=== PATIENT | male | born 1985 | race Caucasian/White ===

== ENCOUNTER 2017-10-18 20:34 | Emergency (ER) | payer MEDICAID, SELFPAY ==
[2017-10-18 20:35] VITALS: BP 129/73; PULSE 91; RESP 15; TEMP 36.8; O2SAT 98; BMI 21.7
--- NOTE | 2017-10-18 20:48 | RAD_ITS ---
STUDY: X-RAY CHEST REASON FOR EXAM: Male, 32 years old. Posterior chest pain with cough. TECHNIQUE: PA and lateral views of the chest. COMPARISON: None. FINDINGS: No focal consolidation is visualized. Normal size heart. Normal mediastinum and lis. Normal visualized pulmonary arteries. Normal visualized aortic arch and descending thoracic aorta. Normal visualized thoracic spine. Normal visualized ribs, clavicles, and shoulders. There is no demonstrated abnormality of the visualized soft tissue structures of the upper abdomen. RAD/Chest PA and Lateral IMPRESSION: No acute cardiopulmonary process. Electronically Signed: Ashley Cope MD at 21:37 EST Tel , Service support ,
--- NOTE | 2017-10-18 21:45 | ED.DCSUM_ITS ---
- ER Visit Summary Date of Service: 10/18/17 Chief Complaint: Shortness of breath History of Present Illness: The patient is a 32 M who presents with shortness of breath. He states that he has had about a week to a week and a half of URI- like illness with congestion rhinorrhea and cough. In the last 3 days he states his cold moved into my chest. He complains of chest congestion and shortness of breath for about 3 days. He does have a history of asthma and has an albuterol inhaler that he uses as needed. He is not a smoker. He denies fevers vomiting diarrhea. He denies any pain. Physical Examination: Afebrile vitals are normal Heart regular rate and rhythm Lungs are clear without rales rhonchi or wheezes he is able speak in full sentences no retractions or increased work of breathing Abdomen soft Extremities nontender without edema Test Results: Chest x-ray shows no acute process Emergency Department Course and Treatment: History and examination are consistent with a viral bronchitis. He was instructed on supportive care. He understands to return for new or worsening symptoms and all questions were answered bedside. He was discharged. Treatment Plan: [] Disposition: Discharge Impression: Bronchitis This note was generated with [employer] dictation software. It may contain incorrect words, spelling, and punctuation that were not noted in review of the chart prior to signing ED Disposition - Plan for ED Patient: Chief Complaint: Shortness of Breath Referrals: Marko Vyas MD [Primary Care Provider] -
--- NOTE | 2017-10-18 21:45 | ED.DEP ---
ED Disposition - Plan for ED Patient: Chief Complaint: Shortness of Breath Instructions: ED Bronchitis Asthmatic Referrals: Marko Vyas MD [Primary Care Provider] -
[2017-10-18 21:53] VITALS: RESP 16
== END 2017-10-18 21:53 | disposition home or self-care (01) ==
LOC: ED 20:59
PROVIDERS: Emergency Provider Emergency Medicine; Family Provider Family Medicine; PCP Family Medicine
DX: J45.909 Unspecified asthma, uncomplicated (principal); E66.9 Obesity, unspecified
CPT/HCPCS: 71046; 99282

== ENCOUNTER 2018-03-07 10:48 | Emergency (ER) | payer MEDICAID, SELFPAY ==
[2018-03-07 10:49] VITALS: BP 129/83; PULSE 69; RESP 17; TEMP 36.7; O2SAT 99; BMI 22.3
--- NOTE | 2018-03-07 11:19 | ED.DCSUM_ITS ---
- ER Visit Summary Date of Service: 03/07/18 Chief Complaint: Abscess History of Present Illness: The patient is a 32 M who presents with possible abscess to his neck that has been waxing and waning over the past 2 months but has been getting worse over the past 2 weeks. Patient denies any drainage. Patient denies any fevers or chills. Patient denies any trauma or injury. Patient describes the pain as aching. Patient denies any radiation of the pain. Physical Examination: Vital signs are stable. Patient is afebrile. Patient is in no acute distress. Skin is warm and dry. There is erythema, induration, and tenderness over the posterior neck. There is no fluctuance. There is no active drainage noted. Neck is supple. There is full range of motion. There is no lymphadenopathy noted. Cranial nerves II through XII are intact. There are no focal motor or sensory deficits noted. The remaining physical exam is within normal limits. Treatment Plan: The area is not amenable to incision and drainage at this time. Patient was instructed to use warm compresses to the area. Patient was given a prescription for clindamycin. Patient was instructed to follow-up with his primary care physician in 5-7 days. Patient understood and was agreeable with the plan. All questions were answered. Disposition: Discharged home Impression: Neck abscess This note was generated with [employer] dictation software. It may contain incorrect words, spelling, and punctuation that were not noted in review of the chart prior to signing ED Disposition - Plan for ED Patient: Disposition: Home or Assisted Living Chief Complaint: Abscess Diagnosis: Neck abscess Instructions: ED Staph Infec Abx Tx Only Prescriptions: Clindamycin HCl [Cleocin] 300 mg PO Q6H #40 cap Referrals: Marko Vyas MD [Primary Care Provider] -
[2018-03-07 11:30] VITALS: BP 120/70; PULSE 59; RESP 16; O2SAT 98
== END 2018-03-07 11:35 | disposition home or self-care (01) ==
PROVIDERS: Emergency Provider Emergency Medicine; Family Provider Family Medicine; PCP Family Medicine
DX: L02.11 Cutaneous abscess of neck (principal); J45.909 Unspecified asthma, uncomplicated
CPT/HCPCS: 99282

== ENCOUNTER 2020-05-22 17:57 | Emergency (ER) | payer OTHER, SELFPAY ==
[2020-05-22 17:57] VITALS: BMI 21.7
[2020-05-22 17:58] VITALS: BP 127/87; PULSE 64; RESP 16; TEMP 36.2; O2SAT 98; BMI 23.7
[2020-05-22 18:08] VITALS: BP 127/87; PULSE 64; RESP 16; TEMP 36.2; O2SAT 98
--- NOTE | 2020-05-22 18:28 | EKG12_ITS ---
Test Reason : ASTHMA Blood Pressure : / mmHG Vent. Rate : 062 BPM Atrial Rate : 062 BPM P-R Int : 138 ms QRS Dur : 092 ms QT Int : 410 ms P-R-T Axes : 043 050 044 degrees QTc Int : 416 ms Normal sinus rhythm Normal ECG Confirmed by KIMBERLY CERVANTES, ZEE ([id number]), legal editor MACEY WILSON ([id number]) on 05/24/2020 9:46:40 AM Referred By: Confirmed By:ZEE HARRIS MD
--- NOTE | 2020-05-22 18:30 | ED.VISSUMM ---
- ER Visit Summary Date of Service: 05/22/20 Chief Complaint: Shortness of breath History of Present Illness: The patient is a 34 M presenting with shortness of breath. Patient has a history of asthma. States he has been using his inhaler frequently over the past couple of months. He was given prednisone 2 months ago. He states he was also given muscle relaxers and Prevacid for these symptoms. Has been seen at urgent care multiple times. He denies fever or cough. He has chest tightness which has been constant for the past 2 months. He is not a smoker. Physical Examination: Vitals are stable. Patient is afebrile. Alert no acute distress. HEENT exam is unremarkable. Neck is supple. Lungs are expiratory wheezing bilaterally. Heart is regular rate and rhythm. Abdomen is soft nontender nondistended. Extremities are unremarkable. Skin is warm and dry. No focal neurologic deficit. Remainder of exam is unremarkable. Emergency Department Course and Treatment: Patient was given albuterol, Atrovent aerosols. Chest x-ray shows no acute process. EKG is sinus rhythm rate of 62 with no acute ischemic changes. Troponin is negative. D-dimer negative. On reevaluation, patient is resting comfortably. He states he has an albuterol inhaler at home. He was given a prescription for prednisone. Advised to follow-up with his primary care physician. Advised return to ED for worsening complaints. Disposition: Discharge home Impression: Asthma exacerbation This note was generated with [employer] dictation software. It may contain incorrect words, spelling, and punctuation that were not noted in review of the chart prior to signing ED Disposition - Plan for ED Patient: Instructions: ED REACTIVE AIRWAY DISEASE Adult Prescriptions: Prednisone [Deltasone] 40 mg PO DAILY #10 tab Prescription Printed Referrals: Marko Vyas MD [Primary Care Provider] -
[2020-05-22] MEDS: Albuterol 2.5 MG/3 ML VIAL.NEB. INHALATION ×2 (18:42)
[2020-05-22] MEDS: Ipratropium/Albuterol Sulfate 3 ML AMPUL.NEB INHALATION (18:42)
[2020-05-22 18:44] VITALS: PULSE 68; RESP 16
--- NOTE | 2020-05-22 18:45 | RAD_ITS ---
STUDY: X-RAY CHEST REASON FOR EXAM: Male, 34 years old. shortness of breath, Hx asthma TECHNIQUE: 2 AP portable view of the chest. COMPARISON: October 18, 2017 FINDINGS: The lungs are clear and expanded. There is no demonstrated pleural abnormality. Normal size heart. Normal mediastinum and lis. Normal visualized pulmonary arteries. Normal visualized aortic arch and descending thoracic aorta. Normal visualized thoracic spine. Normal visualized ribs, clavicles, and shoulders. There is no demonstrated abnormality of the visualized soft tissue structures of the upper abdomen. RAD/Chest 1 View (Portable) IMPRESSION: Normal x-ray examination of the chest. Electronically Signed: Joel Ott MD at 19:16 EDT , Service support ,
[2020-05-22 19:02] LABS: D-Dimer Quantitative (DVT/PE) < 0.27 FEU/ug/m (0.27-0.49)
--- NOTE | 2020-05-22 19:27 | ED.DEP ---
ED Disposition - Plan for ED Patient: Instructions: ED REACTIVE AIRWAY DISEASE Adult Prescriptions: Prednisone [Deltasone] 40 mg PO DAILY #10 tab Prescription Printed Referrals: Marko Vyas MD [Primary Care Provider] -
[2020-05-22 20:01] VITALS: PULSE 72; RESP 16; O2SAT 98
[2020-05-22] MEDS: predniSONE 20 MG Tablet 60 MG PO (20:01)
== END 2020-05-22 20:02 | disposition home or self-care (01) ==
LOC: ED 19:27
PROVIDERS: Emergency Provider Emergency Medicine; PCP Family Medicine
DX: J45.901 Unspecified asthma with (acute) exacerbation (principal); Z79.899 Other long term (current) drug therapy
CPT/HCPCS: 71045; 84484; 85379; 93005; 94640; 99284; A4216

== ENCOUNTER 2020-12-04 06:24 | Day surgery (SDC) | payer OTHER, SELFPAY ==
[2020-11-23 13:18] VITALS: BMI 22.6
[2020-12-04 06:50] VITALS: BP 117/76; PULSE 69; RESP 18; TEMP 36.3; O2SAT 100; BMI 23.0
[2020-12-04] MEDS: Lactated Ringers 1,000 ML 100 ML IV (07:07)
--- NOTE | 2020-12-04 07:15 | HP.PCM_ITS ---
Problem List (1) GERD (gastroesophageal reflux disease) Status: Acute Qualifiers: History and Physical Date of Admission: 12/04/20 Intake Vital Signs 11/23/20 Height 6 ft 11/23/20 Weight: 167 lb 11/23/20 BMI 22.6 11/23/20 BP 129/82 H 11/23/20 Blood Pressure Location Rt brachial 11/23/20 Position Sitting 11/23/20 Respiration 16 11/23/20 Pulse 83 11/23/20 Pulse Source Monitor 11/23/20 Temp 97.8 F 11/23/20 Temp Source Temporal 11/23/20 Pulse Oximetry (%) 98 11/23/20 Oxygen Delivery Method room air Intake Visit Reasons: ONE MONTH F/U MEDICATION 10/25 Chief Complaint: gerd/egd Occupational Health Professional Required: No Is patient in pain?: No Allergies bupropion HCl [From Wellbutrin] Allergy (Verified 11/23/20 13:19) Rash egg Allergy (Verified 11/23/20 13:19) Shortness of breath Medications Albuterol Inhaler [Ventolin Hfa (SP)] 1 - 2 puff INHALATION Q4H PRN PRN 10/18/17 [History Confirmed 11/23/20] Montelukast [Singulair] 10 mg PO DAILY 05/22/20 [History Confirmed 11/23/20] budesonide-formoterol HFA 80 mcg-4.5 mcg/actuation aerosol inhaler 2 puff INHALATION BID 10/25/20 [History Confirmed 11/23/20] lactobacillus combination no.9 4 billion cell capsule PO 10/25/20 [History Confirmed 11/23/20] pantoprazole 40 mg tablet,delayed release 40 mg PO DAILY #60 tab 10/25/20 [Rx Confirmed 11/23/20] PFSH Medical History GERD (gastroesophageal reflux disease) (Acute) Asthma (Acute) Surgical History S/P wisdom tooth extraction (Acute) Family History Father Diabetes Heart disease Hypertension Mother CAD (coronary artery disease) Social History (Updated 11/23/20 @ 15:[address] Juan Almazan MD) Smoking Status: Former smoker alcohol intake: former HPI HPI HPI: VIVIENNE STEWART, is a 35 M who presents to the office today for HPI HPI Surgical H&P: Yes HPI: VIVIENNE STEWART, is a 35 M who presents to the office today for Follow-up for GERD. The patient reports he has been on a month of PPI with no improvement. He says the burning in his chest did improve somewhat but he still having a foul taste in his mouth and he is unsure if this is reflux or not. ROS General General: No weight change or fatigue Cardio Cardiovascular: No murmur, pacemaker, heart disease, atrial fibrillation, high blood pressure, heart attack, heart stent, palpitations, shortness of breat with exertion or chest pain Psych Psychiatric: No depression or anxiety Resp Respiratory: No shortness of breath, No sleep apnea, No cough, No COPD, No asthma, No emphysema, No wheezing Gastro Gastrointestinal: Yes abdominal pain, No nausea or vomiting, No diarrhea, No constipation, No blood in stool, Yes acid reflux, No hemorrhoids, No ulcers, No gallbladder problem, No black,tarry stools Doc Hematologic: No blood thinners Exam Const General: cooperative Orientation: alert, oriented x3 Resp Effort & Inspection: normal respiratory effort Auscultation: clear to auscultation bilaterally Cardio Rate: regular rate Rhythm: regular rhythm Heart Sounds: no murmurs GI Inspection: non-distended Palpation: soft, nontender Assessment & Plan Problems 1. Gastroesophageal reflux disease, unspecified whether esophagitis present K21.9 Plan The patient reports his burning in his chest did improve somewhat but he still having a foul taste in his mouth and he is still unsure as if this is really GERD. The patient saw ENT and they performed a scope and did not think it was anything ENT related. I recommended EGD with pH probe. I explained that this would likely indicate 1 where another if the patient is actually having reflux disease. Patient is willing to proceed. I explained endoscopy in detail to the patient. I explained the risks including but not limited to stroke or heart attack with anesthesia, perforation of the GI tract, bleeding, infection. I explained that any of these could necessitate further emergency surgery. The patient understands and all questions were answered sufficiently. The patient wishes to proceed with procedure. Juan Almazan MD Pager: [facility] [address] [place] [address], [address] [place] [address] Office: I have re-examined the patient. There are no clinical changes since date of exam.
--- NOTE | 2020-12-04 07:30 | IMM_PTH ---
PATIENT: VIVIENNE STEWART LOC: EN U#:[id number] AGE/SX: 35/M ROOM: RE12/04/[address]: Dr. Juan Almazan MD : 1985 BED: DIS: 12/04/2020 SPEC #: [id number] RECD: 12/04/20 13:34 STATUS: PEDRITO REMasoud #: [id number] KRYSTYNA: 12/04/20 07:[address]: Juan Almazan DEPT: IMMUNOHISTOCHEMISTRY RECD BY: Nafisa Ward ENTERED: 12/04/20 13:34 SP TYPE: IMMUNO OTHR DR: Dr. Marko Vyas MD Tissues: Stomach, NOS Procedures: H Pylori (initial) PHYSICIAN & INSTITUTION [place] [id number] SPECIMEN INFORMATION: Tissue Source: Antrum biopsy Clinical Info: GERD Specimen Number: [id number] CPT code: 44703 METHODOLOGY: Deparaffinized sections of prefer/formalin-fixed tissue or PAP/DQ stained slides are incubated with monoclonal/polyclonal antibodies/oligonucleotide probes. Localization is made via biotin free immunoperoxidase method. Appropriate controls are performed and reacted as expected. Results on target cell population are indicated in the following table: RESULTS: ANTIBODY / CLONE RESULT H Pylori (polyclonal) negative These tests were developed and their performance characteristics determined by [facility]. They may not have been cleared or approved by the U.S. Food and Drug Administration. The FDA has determined that such clearance or approval is not necessary. INTERPRETATION: Antrum, biopsy: Negative for Helicobacter pylori organisms. MADISON:brittany 12/05/2020
--- NOTE | 2020-12-04 07:30 | EGD_PTH ---
PATIENT: VIVIENNE STEWART LOC: EN U#:[id number] AGE/SX: 35/M ROOM: RE12/04/[address]: Dr. Juan Almazan MD : 1985 BED: DIS: 12/04/2020 SPEC #: [id number] RECD: 12/04/20 11:11 STATUS: PEDRITO LEON #: [id number] KRYSTYNA: 12/04/20 07:[address]: Juan Almazan DEPT: SURGICAL PATHOLOGY RECD BY: Sharon Cary ENTERED: 12/04/20 12:46 SP TYPE: EGD BIOPSY OT DR: Dr. Marko Vyas MD Tissues: Gastric mucous membrane Procedures: Special Stain Group II Surgery Specimen Level IV Alcian Blue/PAS (control) HEADER OPERATION: EGD - PH probe ([facility] [place] PRE-OP DIAGNOSIS: GERD, esophagitis TISSUE SUBMITTED: Antrum biopsy for H. pylori and path MICROSCOPIC DIAGNOSIS Antrum biopsy: Chronic active gastritis. Focal intestinal metaplasia (goblet cell metaplasia). Negative for dysplasia. See comment. MADISON:brittany 12/05/2020 COMMENT The results of immunohistochemistry for Helicobacter pylori will be reported separately ([id number]). Alcian blue/PAS stain with matched control is used in the evaluation of the specimen. MICROSCOPIC DESCRIPTION Slides are reviewed. GROSS DESCRIPTION Received in fixative is one container labeled with the patient's name and designated antral biopsy. The specimen consists of two irregular fragments of light cisneros soft tissue that in aggregate measure 0.6 x 0.2 x 0.1 cm. The specimen is totally submitted in one cassette. / MADISON:brittany 01/04/21 TC:2 CPT: 16085, 34379
[2020-12-04 07:44] VITALS: BP 101/67; BP 117/76; PULSE 72; RESP 16; TEMP 36.2; O2SAT 98
--- NOTE | 2020-12-04 07:44 | OP.EGD_ITS ---
Patient Name: Marquez Myrick Procedure Date: 12/04/2020 7:21 AM Date of : 1985 Age: 35 Procedure: Upper GI endoscopy Indications: Gastro-esophageal reflux disease Providers: Juan Almazan MD Referring MD: Marko Vyas Medicines: Monitored Anesthesia Care Patient Profile: This is a 35 year old male. Refer to note in patient chart for documentation of history and physical. Complications: No immediate complications. Procedure: Pre-Anesthesia Assessment: - Prior to the procedure, a History and Physical was performed, and patient medications and allergies were reviewed. The patient's tolerance of previous anesthesia was also reviewed. The risks and benefits of the procedure and the sedation options and risks were discussed with the patient. All questions were answered, and informed consent was obtained. Prior Anticoagulants: The patient has taken no previous anticoagulant or antiplatelet agents. After reviewing the risks and benefits, the patient was deemed in satisfactory condition to undergo the procedure. After obtaining informed consent, the endoscope was passed under direct vision. Throughout the procedure, the patient's blood pressure, pulse, and oxygen saturations were monitored continuously. The Endoscope was introduced through the mouth, and advanced to the second part of duodenum. The upper GI endoscopy was accomplished without difficulty. The patient tolerated the procedure well. Scope In: 7:33:02 AM Scope Out: 7:40:30 AM Total Procedure Duration Time 0 hours 7 minutes 28 seconds Findings: A large amount of food (residue) was found in the gastric body. The esophagus was normal. The examined duodenum was normal. The SCHERER capsule with delivery system was introduced through the mouth and advanced into the esophagus, such that the SCHERER pH capsule was positioned 35 cm from the incisors, which was 6 cm proximal to the GE junction. Suction was applied to the well of the SCHERER pH capsule to suck in the adjacent mucosa of the esophagus using the external vacuum pump set at a minimum vacuum pressure of 550 mmHg for 30 seconds. The SCHERER pH capsule was then deployed by depressing the plunger on top of the handle to advance the locking pin into the mucosa, thereby attaching the capsule to the esophagus. The plunger was then rotated a quarter turn clockwise to release the capsule from the delivery system. The delivery system was then withdrawn. Endoscopy was utilized for probe placement and diagnostic evaluation. Localized moderate inflammation characterized by friability was found in the stomach. Biopsies were taken with a cold forceps for Helicobacter pylori testing. Impression: - A large amount of food (residue) in the stomach. - Normal esophagus. - Normal examined duodenum. - The SCHERER pH capsule was positioned 35 cm from the incisors, which was 6 cm proximal to the GE junction. - No specimens collected. Recommendation: - Discharge patient to home. - Resume previous diet. - Continue present medications. Procedure Code(s): --- Professional --- 20004, Esophagogastroduodenoscopy, flexible, transoral; with biopsy, single or multiple 69999, 51, Esophagus, gastroesophageal reflux test; with mucosal attached telemetry pH electrode placement, recording, analysis and interpretation Diagnosis Code(s): --- Professional --- K21.9, Gastro-esophageal reflux disease without esophagitis CPT copyright 2017 [employer]. All rights reserved. The codes documented in this report are preliminary and upon department specialist review may be revised to meet current compliance requirements. Juan Almazan MD 12/04/2020 7:43:28 AM This report has been signed electronically. Number of Addenda: 0 Note Initiated On: 12/04/2020 7:21 AM
--- NOTE | 2020-12-04 07:44 | OP.CCLET_ITS ---
12/04/2020 Marko Vyas Re : Upper GI endoscopy procedure for Marquez Myrick Jourdan Vyas This procedure was performed on Friday, December 04, 2020. My impressions and recommendations are as follows: Impressions : - A large amount of food (residue) in the stomach. - Normal esophagus. - Normal examined duodenum. - The SCHERER pH capsule was positioned 35 cm from the incisors, which was 6 cm proximal to the GE junction. - No specimens collected. Recommendations : - Discharge patient to home. - Resume previous diet. - Continue present medications. My findings are described in the full procedure note, which is enclosed. If I can be of further assistance, please feel free to contact me at Doctor phone number(s): , Work: . Sincerely, Juan Almazan MD 12/04/2020 7:43:28 AM This report has been signed electronically.
[2020-12-04 07:50] VITALS: BP 105/69; BP 117/76; PULSE 67; RESP 16; O2SAT 99
[2020-12-04 07:55] VITALS: BP 100/76; BP 117/76; PULSE 61; RESP 16; O2SAT 98
[2020-12-04 08:00] VITALS: BP 113/76; BP 117/76; PULSE 65; RESP 16; TEMP 36.1; O2SAT 98
[2020-12-04 08:36] VITALS: BP 117/76
== END 2020-12-04 08:40 | disposition home or self-care (01) ==
LOC: EN 06:24 → AC 06:25
PROVIDERS: PCP Family Medicine; Referring Provider Family Medicine; Visit Provider Surgery
PROC: (CPT 43239; principal; 2020-12-04 07:25)
DX: K29.50 Unspecified chronic gastritis without bleeding (principal); K21.9 Gastro-esophageal reflux disease without esophagitis; Z20.822 Contact with and (suspected) exposure to COVID-19; J45.909 Unspecified asthma, uncomplicated; Z79.899 Other long term (current) drug therapy; Z87.891 Personal history of nicotine dependence
CPT/HCPCS: 43239; 91035; 87426; 88305; 88313; 88342; C9803; J7120